=== PATIENT | male | born 1940 ===

== ENCOUNTER 2017-06-16 10:48 | Outpatient (CLI) | payer OTHER | END 2017-06-16 13:52 | disposition home or self-care (01) | LOC: SONOGRAMA 10:48 | DX: N45.2 Orchitis (principal) ==

== ENCOUNTER 2018-04-01 10:33 | Outpatient (CLI) | payer OTHER | END 2018-04-01 11:01 | disposition home or self-care (01) | LOC: LAB 10:33 | DX: C61 Malignant neoplasm of prostate (principal); D51.8 Other vitamin B12 deficiency anemias; E06.3 Autoimmune thyroiditis; K25.7 Chronic gastric ulcer without hemorrhage or perforation; D51.1 Vitamin B12 deficiency anemia due to selective vitamin B12 malabsorption with proteinuria; E03.8 Other specified hypothyroidism; D50.0 Iron deficiency anemia secondary to blood loss (chronic); D51.0 Vitamin B12 deficiency anemia due to intrinsic factor deficiency; D63.1 Anemia in chronic kidney disease; M81.0 Age-related osteoporosis without current pathological fracture; D51.3 Other dietary vitamin B12 deficiency anemia; N18.3 Chronic kidney disease, stage 3 (moderate); K90.89 Other intestinal malabsorption; I10 Essential (primary) hypertension; R97.0 Elevated carcinoembryonic antigen [CEA]; K92.1 Melena; D55.0 Anemia due to glucose-6-phosphate dehydrogenase [G6PD] deficiency; R97.8 Other abnormal tumor markers; D50.8 Other iron deficiency anemias; R97.20 Elevated prostate specific antigen [PSA] ==

== ENCOUNTER 2018-04-08 14:12 | Emergency (ER) | payer OTHER ==
[~2018-04-08] VITALS: Ht 170.2 cm; Wt 68.0 kg
[2018-04-08] MEDS ORDERED: PROTONIX40 MG (15:17)
== END 2018-04-08 17:32 | disposition home or self-care (01) ==
LOC: ER 14:12
DX: M54.89 Other dorsalgia (principal)

== ENCOUNTER 2018-04-11 17:50 | Inpatient (IN) | payer OTHER ==
[~2018-04-11] VITALS: Ht 170.2 cm; Wt 70.3 kg
[~2018-04-11 17:50] MED LIST: PROTONIX40 MG
== END 2018-04-14 13:57 | disposition home or self-care (01) | DRG 379 ==
LOC: ER 17:50 → MEDI 04-12 12:50
PROC: 30233N1 Transfusion of Nonautologous Red Blood Cells into Peripheral Vein, Percutaneous Approach (ICD-10-PCS; principal; 2018-04-12)
DX: K25.4 Chronic or unspecified gastric ulcer with hemorrhage (principal); D50.0 Iron deficiency anemia secondary to blood loss (chronic); Z90.3 Acquired absence of stomach [part of]

== ENCOUNTER 2018-04-23 16:44 | Emergency (ER) | payer OTHER ==
[~2018-04-23] VITALS: Ht 170.2 cm; Wt 70.3 kg
[2018-04-23] MEDS ORDERED: GABAPENTIN300 MG (17:08)
[2018-04-23] MEDS ORDERED: OMEPRAZOLE20 MG (17:08)
[2018-04-23] MEDS ORDERED: MAXFE CAPLET1 EACH (17:09)
== END 2018-04-23 22:03 | disposition home or self-care (01) ==
LOC: ER 16:44
DX: M51.26 Other intervertebral disc displacement, lumbar region (principal); M54.5 Low back pain

== ENCOUNTER 2018-05-16 18:36 | Outpatient (CLI) | payer OTHER ==
[~2018-05-16 18:36] MED LIST changes: +GABAPENTIN300 MG; +MAXFE CAPLET1 EACH; +OMEPRAZOLE20 MG
== END 2018-05-16 20:51 | disposition home or self-care (01) ==
LOC: LAB 18:36
DX: C16.9 Malignant neoplasm of stomach, unspecified (principal); D50.0 Iron deficiency anemia secondary to blood loss (chronic); C61 Malignant neoplasm of prostate; K25.7 Chronic gastric ulcer without hemorrhage or perforation; M81.0 Age-related osteoporosis without current pathological fracture; K91.2 Postsurgical malabsorption, not elsewhere classified; D51.8 Other vitamin B12 deficiency anemias; I10 Essential (primary) hypertension; R97.0 Elevated carcinoembryonic antigen [CEA]; R97.8 Other abnormal tumor markers

== ENCOUNTER 2018-06-29 14:14 | Outpatient (CLI) | payer OTHER | END 2018-06-29 14:24 | disposition home or self-care (01) | LOC: RAD 14:14 | DX: C16.8 Malignant neoplasm of overlapping sites of stomach (principal); K92.1 Melena; K29.00 Acute gastritis without bleeding ==

== ENCOUNTER 2018-07-22 07:23 | Outpatient (CLI) | payer OTHER ==
[~2018-07-22] VITALS: Ht 152.4 cm; Wt 72.6 kg
== END 2018-07-22 07:50 | disposition home or self-care (01) ==
LOC: OFIC 805 07:23
DX: H72.93 Unspecified perforation of tympanic membrane, bilateral (principal); H93.13 Tinnitus, bilateral; H70.12 Chronic mastoiditis, left ear; H61.23 Impacted cerumen, bilateral

== ENCOUNTER 2018-07-27 08:43 | Outpatient (CLI) | payer OTHER | END 2018-07-27 08:54 | disposition home or self-care (01) | LOC: TOM 08:43 | DX: H70.12 Chronic mastoiditis, left ear (principal); H72.2X2 Other marginal perforations of tympanic membrane, left ear; H69.82 Other specified disorders of Eustachian tube, left ear ==

== ENCOUNTER 2018-08-19 07:48 | Outpatient (CLI) | payer OTHER ==
[~2018-08-19] VITALS: Ht 152.4 cm; Wt 72.6 kg
== END 2018-08-19 08:05 | disposition home or self-care (01) ==
LOC: OFIC 805 07:48
DX: H70.12 Chronic mastoiditis, left ear (principal); H72.90 Unspecified perforation of tympanic membrane, unspecified ear

== ENCOUNTER 2018-09-19 18:41 | Emergency (ER) | payer OTHER ==
[~2018-09-19] VITALS: Ht 162.6 cm; Wt 69.4 kg
[2018-09-19] MEDS ORDERED: CARAFATE1 GM (18:54)
[2018-09-19] MEDS ORDERED: PROTONIX40 M1 (18:54)
== END 2018-09-19 21:11 | disposition home or self-care (01) ==
LOC: ER 18:41
DX: G89.29 Other chronic pain (principal); M54.5 Low back pain; M79.605 Pain in left leg; F45.42 Pain disorder with related psychological factors

== ENCOUNTER 2018-10-27 10:28 | Outpatient (CLI) | payer OTHER ==
[~2018-10-27 10:28] MED LIST changes: +CARAFATE1 GM; +PROTONIX40 M1
== END 2018-10-27 13:21 | disposition home or self-care (01) ==
LOC: NUCLEAR 10:28
DX: C16.2 Malignant neoplasm of body of stomach (principal); I51.4 Myocarditis, unspecified
CPT/HCPCS: 78815; A9552

== ENCOUNTER 2019-01-18 07:57 | Outpatient (CLI) | payer OTHER ==
[~2019-01-18] VITALS: Ht 152.4 cm; Wt 63.0 kg
== END 2019-01-18 08:15 | disposition home or self-care (01) ==
LOC: OFIC 805 07:57
DX: H72.93 Unspecified perforation of tympanic membrane, bilateral (principal); R49.9 Unspecified voice and resonance disorder; E04.1 Nontoxic single thyroid nodule; H70.12 Chronic mastoiditis, left ear

== ENCOUNTER 2019-07-31 13:17 | Outpatient (CLI) | payer OTHER ==
[~2019-07-31] VITALS: Ht 152.4 cm; Wt 59.0 kg
== END 2019-07-31 14:18 | disposition home or self-care (01) ==
LOC: OFIC 805 13:17
DX: H91.8X2 Other specified hearing loss, left ear (principal); H70.892 Other mastoiditis and related conditions, left ear; H66.92 Otitis media, unspecified, left ear
CPT/HCPCS: 99213; G0463

== ENCOUNTER 2019-08-22 09:29 | Outpatient (CLI) | payer OTHER | END 2019-08-22 11:53 | disposition home or self-care (01) | LOC: OFIC 805 09:29 | DX: H66.92 Otitis media, unspecified, left ear (principal); H72.92 Unspecified perforation of tympanic membrane, left ear; H93.13 Tinnitus, bilateral; H90.3 Sensorineural hearing loss, bilateral | CPT/HCPCS: 99213; G0463 ==

== ENCOUNTER 2021-02-03 14:15 | Outpatient (CLI) | payer OTHER | END 2021-02-03 14:20 | disposition home or self-care (01) | LOC: RAD 14:15 | PROVIDERS: ATTEND Internal Medicine Pulmonary Disease | DX: J94.8 Other specified pleural conditions (principal); J98.11 Atelectasis; R06.02 Shortness of breath ==

== ENCOUNTER 2021-07-16 14:08 | Inpatient (IN) | payer OTHER ==
[~2021-07-16] VITALS: Ht 167.6 cm; Wt 54.9 kg
[2021-07-16] MEDS ORDERED: ZOFRAN8 MG PO (14:20)
--- NOTE | 2021-07-16 14:25 | NUR ---
SE RECIBE PACIENTE ALERTA Y ORIENTADO X3 QUIEN REFIERE TIENE VOMITOS DESDE BRIANNA PTE REFIERE QUE LOS VOMITOS SON DE SECRESIONES YA QUE TRATA DE COMER Y TODO LO VOMITA. EL ULTIMO VOMITO FUE ESTA MANANA. SE MONITOREAN S/V Y SE UBICA EN OBSERVACION.
--- NOTE | 2021-07-16 15:57 | NUR ---
EVALUA PTE. SE EDUCA A PTE SOBRE [place] MEDICO. PTE REFIERE COMPRENDER. SE REALIZAN MUESTRAS DE LABORATORIO BAJO MEDIDAS ASEPTICAS. SE ADMINISTRAN MEDICAMENTOS PÉREZ ORDEN MEDICA. PTE MANEJADO POR .
[2021-07-18] MEDS ORDERED: METOCLOPRAMIDE10 MG (08:45)
[2021-07-18] MEDS ORDERED: GABAPENTIN100 M2 (08:45)
[2021-07-18] MEDS ORDERED: FAMOTIDINE20 MG (08:46)
[2021-07-18] MEDS ORDERED: SPIRONOLACTONE25 MG (08:46)
[2021-07-18] MEDS ORDERED: TRAZODONE HCL50 MG (08:48)
[2021-07-18] MEDS ORDERED: BUSPIRONE HCL5 MG (08:48)
[2021-07-22] MEDS ORDERED: LASIX20 MG PO (14:00)
[2021-07-22] MEDS ORDERED: CARAFATE1 GM PO (14:00)
[2021-07-22] MEDS ORDERED: PROTONIX40 M1 PO (14:00)
[2021-07-22] MEDS ORDERED: POLY119PG PO (14:00)
[2021-07-22] MEDS ORDERED: PROTEINEX-18 LI30 ML PO (14:00)
[2021-07-22] MEDS ORDERED: FAMOTIDINE20 MG PO (14:00)
[2021-07-22] MEDS ORDERED: SPIRONOLACTONE25 MG PO (14:00)
[2021-07-22] MEDS ORDERED: CLONAZEPAM0.5 MG PO (14:00)
== END 2021-07-22 18:20 | disposition home or self-care (01) | DRG 381 ==
LOC: ER 14:08 → SEC-K 20:13 → MEDJ 07-17 16:35
PROVIDERS: ADMIT Internal Medicine Geriatric Medicine; ATTEND Internal Medicine Geriatric Medicine
PROC: 0D768ZZ Dilation of Stomach, Via Natural or Artificial Opening Endoscopic (ICD-10-PCS; principal; 2021-07-16)
DX: K31.1 Adult hypertrophic pyloric stenosis (principal); C16.8 Malignant neoplasm of overlapping sites of stomach; K62.4 Stenosis of anus and rectum; Z90.3 Acquired absence of stomach [part of]; Z98.0 Intestinal bypass and anastomosis status; E86.0 Dehydration; K27.9 Peptic ulcer, site unspecified, unspecified as acute or chronic, without hemorrhage or perforation; Z20.822 Contact with and (suspected) exposure to COVID-19